=== PATIENT | male | born 1965 | race Caucasian/White ===

== ENCOUNTER 2021-06-10 10:22 | Emergency (ER) | payer OTHER ==
[2021-06-10 11:08] LABS: BASOPHIL 0.8 % (0-2); EOSINOPHIL 0.9 % (0-5); HCT 48.4 % (42.0-52.0); HGB 16.1 g/dl (13.2-18.0); LYMPHOCYTE 22.8 % (15-48); MCH 31.3 pg (25.0-31.0); MCHC 33.3 g/dL (32.0-36.0); MCV 94.2 fL (78.0-100.0); MONOCYTE 10.6 % (0-12); MPV 10.1 fL (6.0-9.5); NEUTROPHIL 64.5 % (41-80); NRBC 0; PLT 215 K/uL (150-400); RBC 5.14 M/uL (4.70-6.00); RDW 13.2 % (11.5-14.0); WBC 9.2 K/uL (4.0-10.5)
[2021-06-10 11:17] LABS: ALBUMIN 3.9 g/dL (3.4-5.0); BILIRUBIN - TOTAL 0.5 mg/dL (0.2-1.0); BUN/CREAT RATIO (CALC) 15.7 RATIO; CREATININE 1.15 mg/dL (0.67-1.17); GLOBULIN (CALCULATION) 3.4 g/dL; MAGNESIUM 1.9 mg/dL (1.8-2.4); POTASSIUM 4.5 mmol/L (3.5-5.1); TOTAL PROTEIN 7.3 g/dL (6.4-8.2)
[2021-06-10 12:02] LABS: BILIRUBIN NEGATIVE (NEGATIVE); BLOOD 2+ Ery/uL (NEGATIVE); CLARITY CLEAR (CLEAR); COLOR YELLOW (YELLOW); GLUCOSE (U) NORMAL (NORMAL); LEUKOCYTES NEGATIVE Leu/uL (NEGATIVE); NITRITE NEGATIVE (NEGATIVE); PROTEIN NEGATIVE (NEGATIVE); SPECIFIC GRAVITY >=1.030 (1.001-1.030); UROBILINOGEN 0.2 mg/dL (0.2-1.0)
[2021-06-10] MEDS ORDERED: NORCO 5-325 TA1 EACH PO (12:11)
[2021-06-10] MEDS ORDERED: NAPROXEN500 MG PO (12:11)
[2021-06-10 12:17] LABS: BACTERIA TRACE; URINARY WBC RARE
== END 2021-06-10 12:43 | disposition home or self-care (01) ==
LOC: FER 10:22
PROVIDERS: Emergency Medicine
DX: N13.2 Hydronephrosis with renal and ureteral calculous obstruction (principal); I10 Essential (primary) hypertension; J45.909 Unspecified asthma, uncomplicated
CPT/HCPCS: 36415; 80053; 81001; 83690; 83735; 85025; J1170; J1885; J2405